=== PATIENT | female | born 1990 | race African-American/Black ===

== ENCOUNTER 2020-07-20 17:56 | Emergency (ER) | payer OTHER, SELFPAY ==
[2020-07-20] MEDS ORDERED: Ketorolac Tromethamine 60 MG/2 ML VIAL ONE (19:56)
[2020-07-20] MEDS ORDERED: Penicillin V Potassium 250 MG TAB ONE (19:56)
== END 2020-07-20 20:29 | disposition home or self-care (01) ==
LOC: MADERS 17:56
DX: K04.4 Acute apical periodontitis of pulpal origin (principal); K02.9 Dental caries, unspecified; E11.40 Type 2 diabetes mellitus with diabetic neuropathy, unspecified; D50.9 Iron deficiency anemia, unspecified; I10 Essential (primary) hypertension
CPT/HCPCS: 96372; 99283; J1885